=== PATIENT | male | born 1970 | race Caucasian/White ===

== ENCOUNTER → 2016-10-21 | Outpatient (CLI) | payer SELFPAY | LOC: LAB.O 14:21 | DX: Z02.89 Encounter for other administrative examinations (principal) ==

== ENCOUNTER → 2018-11-29 | Outpatient (CLI) | payer OTHER | LOC: GMAJ 16:56 | PROVIDERS: ATTEND Family Medicine | DX: R53.83 Other fatigue (principal) ==

== ENCOUNTER 2019-09-30 12:29 | Emergency (ER) | payer SELFPAY ==
--- NOTE | 2019-09-30 13:03 | ED.PDOC ---
History of Present Illness - General Chief Complaint: Lower Extremity Injury Stated Complaint: Left LE bleeding Time Seen by Provider: 09/30/19 12:55 Source: patient, RN notes reviewed, Vital Signs reviewed, family - and son Exam Limitations: no limitations - History of Present Illness Initial Comments: Patient is a 49-year-old white male with complaints of left lower extremity bleeding starting today. Patient had something similar to this a few weeks ago when he got out of the shower and noticed some bleeding on the surface of the pierre of his left lower extremity wiped it and it stopped. Today when he was drying all of a sudden blood started squirting 6 to 8 inches out of his left lower extremity. Patient denies any injury except approximately 1 month ago when he banged his pierre. Patient states he is not on any blood thinners. Timing/Duration: 1 hour Severity: mild Improving Factors: nothing Worsening Factors: nothing Associated Symptoms: denies symptoms Allergies/Adverse Reactions: Allergies Piperacillin [From Zosyn] Allergy (Verified 09/30/19 13:09) Tazobactam [From Zosyn] Allergy (Verified 09/30/19 13:09) Review of Systems - Review of Systems Constitutional: States: no symptoms reported, see HPI. Denies: chills, fever, malaise, weakness EENTM: States: no symptoms reported Respiratory: States: no symptoms reported. Denies: cough, short of breath Cardiology: States: no symptoms reported. Denies: chest pain, edema, palpitations, syncope Gastrointestinal/Abdominal: States: no symptoms reported. Denies: abdominal pain, nausea, vomiting Genitourinary: States: no symptoms reported. Denies: frequency, hematuria Musculoskeletal: Denies: back pain, joint pain, joint swelling, neck pain Skin: States: see HPI, dryness, other - Pinhole bleeding from his left lower extremity, mid pierre Neurological: States: tingling - Left lower extremities bilaterally. Endocrine: Denies: excessive sweating, intolerance to cold, intolerance to heat Hematologic/Lymphatic: States: no symptoms reported. Denies: anemia, easy bleeding, easy bruising All other Systems: Reviewed and Negative Past Medical History (General) - Patient Medical History Hx Gastroesophageal Reflux: Yes Surgical History: noncontributory Family Medical History - Family History Father Hx Cardiac Disease: Yes Physical Exam - Physical Exam General Appearance: Alert, Comfortable, Well Developed, Well Groomed, Well Hydrated, Well Nourished Eye Exam: bilateral normal Ears, Nose, Throat: normal ENT inspection, normal pharynx Neck: non-tender, full range of motion, supple, normal inspection Respiratory: chest non-tender, lungs clear, normal breath sounds, no respiratory distress, no accessory muscle use Cardiovascular/Chest: normal peripheral pulses, regular rate, rhythm, no edema, no gallop, no JVD, no murmur Peripheral Pulses: radial,right: 2+, radial,left: 2+, dorsalis pedis,right: 2+, dorsalis pedis,left: 2+ Gastrointestinal/Abdominal: normal bowel sounds, non tender, soft, no organomegaly Back Exam: normal inspection, no CVA tenderness, no vertebral tenderness Extremity: normal range of motion, non-tender, other - On the mid pierre of his left lower extremity, he has a pinhole lesion that is providing a geyser of bright red blood approximately 3 to 4 inches into the air. Bleeding is controlled by pressure. It is nonpulsatile in nature. Lower extremities noted to have dry skin from the ankles down bilaterally with no hair noted on the feet or lower legs. 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 Skin Exam: normal color, warm/dry Lymphatic: no adenopathy Progress - Progress Progress: Differential diagnosis: Elevated INR, medication reaction, trauma to the lower extremity, naturally occurring AV fistula among others. 09/30/19 13:09 Labs were obtained to ensure that he has no abnormalities as far as liver function and vitamin K deficiency as well as an elevated INR for unknown reasons. Patient is not on any blood thinners. 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 Patient was treated conservatively initially with compression dressing and planned elevation. Patient to follow-up with PCP tomorrow for further evaluation. If it continues to bleed he will be referred to surgery for surgical intervention versus distention of blood flow with sutures. I do believe patient probably needs to see a vascular surgeon or a glass maker and have recommended he discuss this with his PCP. His lower extremities do show changes consistent with poor blood flow. I have discussed this plan of care with the patient and his and they voiced understanding and agreement with the plan of care. Jacoby Foley M.D. #[id number] - Results/Orders Results/Orders: Laboratory Results - last 24 hr 09/30/19 09/30/19 09/30/19 12:55 12:55 12:56 WBC 7.9 RBC 4.57 L Hgb 14.1 Hct 41.4 L MCV 90.7 MCH 30.9 MCHC 34.1 RDW 13.1 Plt Count 215 MPV 7.1 L Absolute Neuts (auto) 4.00 Absolute Lymphs (auto) 3.10 Absolute Monos (auto) 0.60 Absolute Eos (auto) 0.10 Absolute Basos (auto) 0.10 Neutrophils % 50.6 Lymphocytes % 39.4 Monocytes % 7.4 Eosinophils % 1.9 Basophils % 0.7 PT 9.7 INR < 1.00 PTT (SP) 23.1 Sodium 137 Potassium 3.6 Chloride 105 Carbon Dioxide 25 Anion Gap 10.6 L BUN 10 Creatinine 0.83 BUN/Creatinine Ratio 12.0 Random Glucose 148 H Serum Osmolality 275.6 Calcium 8.6 Total Bilirubin 0.4 AST 40 ALT 46 Alkaline Phosphatase 66 Serum Total Protein 6.9 Albumin 3.8 Globulin 3.1 Albumin/Globulin Ratio 1.2 Departure - Departure Clinical Impression: Bleeding, Need for prophylactic vaccination against diphtheria, tetanus, acellular pertussis, poliovirus, and hepatitis B virus, Puncture wound, Nicotine dependence with current use Time of Disposition: 13:13 Disposition: Discharge to Home or Self Care Condition: Good Departure Forms: ED Discharge - Pt. Copy, Patient Portal Self Enrollment Instructions: DI for Leg Pain, Wound Care (DC) Activity: other - Patient may resume normal activities but needs to keep his left lower extremity elevated above his heart for the next 24 hours. Referrals: Russell Mcgregor MD [Primary Care Provider] - 1-5 Days
[2019-09-30 13:08] VITALS: TEMP 98.1
[2019-09-30] MEDS ORDERED: TETANUS,DIPHTHERIA,PERTUSSIS 1 EA SYG IM ONE (13:09)
[2019-09-30 13:36] VITALS: BP 132/86; O2SAT 93
== END 2019-09-30 13:35 | disposition home or self-care (01) ==
LOC: ER 12:29
DX: S81.832A Puncture wound without foreign body, left lower leg, initial encounter (principal); F17.200 Nicotine dependence, unspecified, uncomplicated; X58.XXXA Exposure to other specified factors, initial encounter; Y92.9 Unspecified place or not applicable